=== PATIENT | female | born 1980 | race Caucasian/White ===

== ENCOUNTER 2018-06-12 13:46 | Emergency (ER) | payer OTHER ==
[2018-06-12 14:05] VITALS: TEMP 98.5
--- NOTE | 2018-06-12 14:06 | ED ---
SOB HPI - General Stated Complaint: cough Time Seen by Provider: 06/12/18 13:56 Source: patient, RN notes reviewed - History of Present Illness Initial Comments: This is a 37-year-old female who currently is being treated for opiate use at [facility] who presents with complaints of 2 or 3 days of cough with shortness of breath she's been coughing up some calabrese phlegm she says she has some chest tightness associated with it she denies any fevers chills nausea vomiting or other symptoms however. She does have a history of childhood asthma also history of bronchitis she currently is a smoker but she is no she has to quit. No other modifying factors at this time the patient also states that she's had some rhinorrhea. No earache sore throat MD Complaint: shortness of breath, cough - Related Data Home Medications Medication Instructions Recorded Confirmed Acetaminophen [Tylenol Arthritis] 650 mg PO Q4H PRN 06/12/18 06/12/18 Chlorpheniramine Maleate 4 mg PO Q4H PRN 06/12/18 06/12/18 [Chlor-Trimeton] Hyoscyamine Sulfate [Levsin-Sl] 0.125 mg SL Q4H PRN 06/12/18 06/12/18 Ibuprofen [Motrin] 600 mg PO Q6H PRN 06/12/18 06/12/18 Loperamide [Imodium] 2 mg PO QID PRN 06/12/18 06/12/18 Multivitamins, Thera [Multivitamin 1 tab PO DAILY 06/12/18 06/12/18 (formulary)] Ondansetron HCl [Zofran] 8 mg PO Q6HR PRN 06/12/18 06/12/18 Ondansetron [Zofran] 4 mg IM Q6H PRN 06/12/18 06/12/18 Sulfamethox-Tmp 800-160Mg [Bactrim 1 tab PO BID 06/12/18 06/12/18 DS 800-160 mg] Thiamine [Vitamin B-1] 100 mg PO DAILY 06/12/18 06/12/18 Trimethobenzamide [Tigan] 300 mg PO Q6H PRN 06/12/18 06/12/18 predniSONE 20 mg PO BID 06/12/18 06/12/18 predniSONE 40 mg PO ONCE 06/12/18 06/12/18 traZODone HCL 50 - 150 mg PO HS 06/12/18 06/12/18 Previous Rx's Medication Instructions Recorded Ipratropium/Albuterol Sulfate 2 puff INHALATION QID #1 inhaler 06/12/18 [Combivent Respimat Inhaler] predniSONE 20 mg PO BID #10 tab 06/12/18 Allergies Allergy/AdvReac Type Severity Reaction Status Date / Time No Known Allergies Allergy Unverified 06/12/18 14:02 Review of Systems ROS Statement: Those systems with pertinent positive or pertinent negative responses have been documented in the HPI. ROS Other: All systems not noted in ROS Statement are negative. General Exam - General Exam Comments Initial Comments: Pezzer well-developed well-nourished awake alert oriented 3 female General appearance: alert, anxious Head exam: Present: atraumatic, normocephalic, normal inspection Eye exam: Present: normal appearance, PERRL, EOMI. Absent: scleral icterus, conjunctival injection, periorbital swelling ENT exam: Present: normal exam, mucous membranes moist Neck exam: Present: normal inspection. Absent: tenderness, meningismus, lymphadenopathy Respiratory exam: Present: wheezes, decreased breath sounds (Wheezing especially at the bases and sweats and the left.). Absent: respiratory distress, rales, rhonchi, stridor Cardiovascular Exam: Present: regular rate, normal rhythm, normal heart sounds. Absent: systolic murmur, diastolic murmur, rubs, gallop, clicks GI/Abdominal exam: Absent: distended, tenderness, guarding, rebound, rigid Extremities exam: Present: normal inspection, full ROM, normal capillary refill. Absent: tenderness, pedal edema, joint swelling, calf tenderness Back exam: Present: normal inspection Neurological exam: Present: alert, oriented X3, CN II-XII intact Psychiatric exam: Present: normal affect, normal mood Skin exam: Present: warm, dry, intact, normal color. Absent: rash Course Vital Signs 06/12/18 14:00 Temperature 98.5 F Pulse Rate 78 Respiratory 20 Rate Blood Pressure 100/73 O2 Sat by Pulse 94 L Oximetry - Reevaluation(s) Reevaluation #1: 06/12/18 15:11 Reevaluation after initial treatment reveals markedly improved breath sounds with increased aeration very few scattered expiratory wheezes. Patient does states she feels much improved at this time back to her usual state Procedures - Smoking Cessation Time Spent Discussing Smoking Cessation w/Patient (Minutes): 3 Patient Acknowledges Need for Cessation: Yes Medical Decision Making - Medical Decision Making Patient did respond well to the initial treatment in the emergency department she will be discharged placed on a course of oral steroids outpatient as well as an inhaler will be written for. She was again encouraged to stop smoking - Lab Data Lab Results 06/12/18 Range/Units 14:03 Influenza Type A RNA Not Detected (Not Detectd) Influenza Type B (PCR) Not Detected (Not Detectd) - Radiology Data Radiology results: report reviewed (I did review the imaging and report no acute findings.), image reviewed Disposition Clinical Impression: Acute bronchospasm, Bronchitis, Smoking greater than 10 pack years Disposition: HOME SELF-CARE Condition: Good Instructions (If sedation given, give patient instructions): Bronchospasm (ED), Acute Bronchitis (ED), How to Stop Smoking (ED) Prescriptions: Ipratropium/Albuterol Sulfate [Combivent Respimat Inhaler] 2 puff INHALATION QID #1 inhaler predniSONE 20 mg PO BID #10 tab Is patient prescribed a controlled substance at d/c from ED?: No Referrals: Nonstaff,Physician [Primary Care Provider] - 1-2 days
--- NOTE | 2018-06-12 14:23 | XR ---
EXAMINATION TYPE: XR chest 2V DATE OF EXAM: 06/12/2018 COMPARISON: NONE HISTORY: Cough TECHNIQUE: Frontal and lateral views of the chest are obtained. FINDINGS: There is no focal air space opacity, pleural effusion, or pneumothorax seen. The cardiac silhouette size is within normal limits. The osseous structures are intact. IMPRESSION: No acute cardiopulmonary process.
[2018-06-12] MEDS: IPRATROPIUM-ALBUTEROL 3 ML NEB INHALATION STA ×2 (14:40→15:41)
[2018-06-12] MEDS ORDERED: predniSONE 50 MG TAB PO STA (15:11)
[2018-06-12 15:33] VITALS: BP 103/58; RESP 16
[2018-06-12 15:47] VITALS: PULSE 64
[2018-06-12] MEDS ORDERED: ACETAMINOPHEN TAB 325 MG TAB PO STA (15:51)
== END 2018-06-12 16:08 | disposition home or self-care (01) ==
LOC: EC 13:46
DX: J98.01 Acute bronchospasm (principal); J40 Bronchitis, not specified as acute or chronic; F17.210 Nicotine dependence, cigarettes, uncomplicated; Z71.6 Tobacco abuse counseling; Z79.52 Long term (current) use of systemic steroids; Z79.899 Other long term (current) drug therapy
CPT/HCPCS: 94640; 87502; 71046; 99285; 99406; J7512